=== PATIENT | male | born 2000 | race Caucasian/White ===

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

== ENCOUNTER 2021-03-31 17:40 | Emergency (ER) | payer OTHER ==
[~2021-03-31] VITALS: Wt 62.6 kg
== END 2021-03-31 19:25 | disposition left against medical advice (07) ==
LOC: ED 17:40
DX: S81.812A Laceration without foreign body, left lower leg, initial encounter (principal); R55 Syncope and collapse; Z53.29 Procedure and treatment not carried out because of patient's decision for other reasons; V86.56XA Driver of dirt bike or motor/cross bike injured in nontraffic accident, initial encounter; Y93.I9 Activity, other involving external motion; Y92.488 Other paved roadways as the place of occurrence of the external cause; Y99.8 Other external cause status